=== PATIENT | female | born 2000 | race Asian ===

== ENCOUNTER 2023-03-14 15:17 | Outpatient (CLI) | payer OTHER, SELFPAY ==
--- NOTE | ~2023-03-14 | US_ITS ---
EXAMINATION: US OB <=14 wk fetus w TV DATE: 03/14/2023 16:20 INDICATION: Vaginal spotting. Complicated . TECHNIQUE: Real-time transabdominal and transvaginal obstetric ultrasound. FINDINGS: No prior studies for comparison. The uterus measures 9.2 x 6.2 x 7.8 cm. Uterus is retroverted. There is an intrauterine gestational s ac, with pole identified. The crown rump length measures 1.07 cm, which correlates with a mali mated gestational age of 7 weeks 1 day. heart tones are identified measuring 152 BPM. The ova samantha are unremarkable. Trace free fluid in the pelvis. IMPRESSION: 1. SL IUP with an EGA of 7 weeks, 1 days (EDC by current ultrasound of 10/30/2023). Reviewed, dictated and finalized at location B. IMPRESSION: 1. SL IUP with an EGA of 7 weeks, 1 days (EDC by current ultrasound of ).
== END 2023-03-14 15:18 | disposition home or self-care (01) ==
PROVIDERS: PCP Obstetrics & Gynecology; Visit Provider Registered Nurse
DX: O26.859 Spotting complicating pregnancy, unspecified trimester (principal); Z3A.00 Weeks of gestation of pregnancy not specified; Z3A.01 Less than 8 weeks gestation of pregnancy
CPT/HCPCS: 36415; 76801; 76817; 86850; 86900; 86901

== ENCOUNTER 2023-03-30 15:21 | Outpatient (CLI) | payer OTHER, SELFPAY ==
--- NOTE | ~2023-03-30 | US_ITS ---
EXAMINATION: US OB <=14 wk fetus w TV DATE: 03/30/2023 16:57 INDICATION: Possible small subchorionic hematoma. TECHNIQUE: Real-time transabdominal and transvaginal obstetric ultrasound. FINDINGS: Ultrasound dated 03/14/2023 The uterus measures 8.5 x 8.8 x 8.7 cm. There is an intrauterine gestational sac, with pole chandler ntified. The crown rump length measures 2.83 cm, which correlates appropriate interval growth. heart tones are identified measuring 162 BPM. There is a small subchorionic hemorrhage measuring 7 x 4 x 3 mm. IMPRESSION: 1. SL IUP with an EGA of 9 weeks, 3 days (EDC by initial ultrasound of 10/30/2023). 2: Small subchorionic hemorrhage. Reviewed, dictated and finalized at location A. IMPRESSION: 1. SL IUP with an EGA of 9 weeks, 3 days (EDC by initial ultrasound of ). 2: Small subchorionic hemorrhage.
== END 2023-03-30 15:22 | disposition home or self-care (01) ==
PROVIDERS: PCP Family Medicine; Visit Provider Obstetrics & Gynecology
DX: O28.3 Abnormal ultrasonic finding on antenatal screening of mother (principal); Z3A.09 9 weeks gestation of pregnancy
CPT/HCPCS: 76801; 76817

== ENCOUNTER 2023-05-31 11:52 | Outpatient (CLI) | payer OTHER, SELFPAY ==
[2023-05-31 12:49] LABS: Free T4 Free Thyroxine 0.96 ng/mL (0.78-2.19)
[2023-05-31 12:51] LABS: Thyroid Stimulating Hormone 0.987 uIU/mL (0.465-4.680)
== END 2023-05-31 11:53 | disposition home or self-care (01) ==
LOC: ANHLAB 11:53
PROVIDERS: PCP Family Medicine; Visit Provider Registered Nurse
DX: E03.9 Hypothyroidism, unspecified (principal); O99.280 Endocrine, nutritional and metabolic diseases complicating pregnancy, unspecified trimester; Z3A.00 Weeks of gestation of pregnancy not specified
CPT/HCPCS: 36415; 84439; 84443

== ENCOUNTER 2023-09-27 16:35 | Observation (INO) | payer OTHER, SELFPAY ==
[2023-09-27] VITALS (44 sets, daily range): BP systolic 86–112; BP diastolic 51–74; PULSE 95–136; O2SAT 97–100
--- NOTE | 2023-09-27 18:38 | OBADM ---
This patient, Batsheva Dowling, admitted to the OB room Labor/Delivery/Recovery 102 for observation. Patient/family oriented to hospital policies and general routines including ID bracelet, bed and alarms, visiting hours, pain management, procedures, bathroom and other care routines, personal items, smoking policy, room service/diet, and visiting hours. Patient/Family are encouraged to report perceived risks to care and to ask questions if they do not understand what they are told or what they should do.
[2023-09-27] MEDS: TERBUTALINE SULFATE 1 MG/ML VIAL 0.25 MG SUB-Q (18:46)
[2023-09-27] MEDS: LACTATED RINGERS 1,000 ML 125 ML IV CONT (23:26)
[2023-09-28] VITALS (31 sets, daily range): BP systolic 78–120; BP diastolic 25–74; PULSE 91–118; RESP 16; TEMP 36.6–37.1
[2023-09-28] MEDS: ZOLPIDEM TARTRATE (*CRX) 5 MG TABLET PO (01:21)
[2023-09-28 02:31] LABS: Appearance Urine Clear (Clear); Bacteria Urine None Seen /hpf; Bilirubin Urine Negative (Negative); Blood Urine Negative (Negative); Color Urine Yellow (Yellow); Glucose Urine UA Trace mg/dL (Negative); Ketones Urine Trace mg/dL (Negative); Leukocyte Esterase Ur Negative LEU/UL (Negative); Nitrate Urine Negative (Negative); Non Pathogenic Casts 0-2; Protein Urine Trace mg/dL (Negative); RBC Urine 0-2 /hpf (0-2); Specific Grav Ur 1.015 (1.001-1.035); Squamous Epithelial Cell Urine None Seen /hpf (Few); WBC Urine 0-5 /hpf (0-3)
[2023-09-28 02:33] LABS: Add Urine Microscopic? YES
--- NOTE | 2023-10-03 15:16 | P.PNOB_ITS ---
OB - Triage/Final Diagnosis Visit Information Comments/Additional reasons for admission: I have assessed the risk for this patient, Batsheva Dowling, and determined that she would benefit from observation care. Evaluation Laboratory results: Laboratory Tests 09/28/23 02:24 Urine Color Yellow Urine Appearance Clear Urine pH 6.0 Ur Specific [place] 1.015 Urine Protein Trace Urine Glucose (UA) Trace H Urine Ketones Trace H Ur Blood (Man) Negative Urine Nitrate Negative Urine Bilirubin Negative Urine Urobilinogen 1.0 Leukocyte Esterase Rfl Negative Urine RBC 0-2 Urine WBC 0-5 Ur Squamous Epith Cells None seen Urine Bacteria None seen Urine Casts 0-2 Final Diagnosis (1) Threatened labor: Code(s): O47.00 - False labor before 37 completed weeks of gestation, unspecified trimester Status: Acute
== END 2023-09-28 08:52 | disposition home or self-care (01) ==
PROVIDERS: Admitting Provider Obstetrics & Gynecology; PCP Nurse Practitioner Family; Visit Provider Obstetrics & Gynecology
DX: O47.00 False labor before 37 completed weeks of gestation, unspecified trimester (principal); Z3A.36 36 weeks gestation of pregnancy
CPT/HCPCS: 81001; 87081; 96372; A9270; G0378; G0379; J3105; J7120

== ENCOUNTER 2023-10-16 10:00 | Outpatient (RCR) | payer OTHER, SELFPAY ==
--- NOTE | ~2023-10-16 | US_ITS ---
EXAMINATION: US OB BPP wo non-stress DATE: 10/16/2023 12:29 CDT INDICATION: Decreased movement TECHNIQUE: Real-time transabdominal obstetric ultrasound. FINDINGS: No prior studies for comparison. There is a single living fetus in vertex presentation. The placenta is fundal without placenta previ a. cardiac activity and movement is noted with a heart rate of 154 beats per minute. Biophysical profile: breathin of 2 movement: 2 of 2 tone: 2 of 2 Amniotic flud pocket: 2 of 2 Total score: 8 of 8 IMPRESSION: 1. Single living intrauterine in vertex presentation. 2: Total biophysical profile score of 8/8. Reviewed, dictated and finalized at location B.
[2023-10-16 12:45] VITALS: BP 104/63; PULSE 87
== END 2023-12-03 08:12 | disposition home or self-care (01) ==
LOC: ANHOBOP 10:00
PROVIDERS: PCP Family Medicine; Visit Provider Obstetrics & Gynecology
DX: O36.8130 Decreased fetal movements, third trimester, not applicable or unspecified (principal); Z3A.38 38 weeks gestation of pregnancy
CPT/HCPCS: 59025; 76819

== ENCOUNTER 2023-10-23 07:25 | Inpatient (IN) | payer OTHER, SELFPAY ==
[2023-10-23] VITALS (127 sets, daily range): BP systolic 93–125; BP diastolic 55–96; PULSE 77–162; RESP 18; TEMP 36.6–37.7; O2SAT 74–100; BMI 20.2
--- NOTE | 2023-10-23 07:25 | LDADM ---
This patient, Batsheva Dowling, was admitted to Labor/Delivery/Recovery 109 on 10/23/23 at 07:25. Plans for labor, pain management and were discussed with patient. Patient/family oriented to hospital policies and general routines including ID bracelet, bed and alarms, visiting hours, pain management, procedures, bathroom and other care routines, personal items, smoking policy, room service/diet and guest tray routines, security routines, and visiting hours. Patient/Family are encouraged to report perceived risks to care and to ask questions if they do not understand what they are told or what they should do. See OBIX for further documentation.
[2023-10-23 07:59] LABS: Basophils Percent Auto 0.4 % (0.2-1.2); Eosinophils Absolute Auto 0.1 K/mm3 (0-0.3); Eosinophils Percent Auto 1.3 % (0-4.4); Hematocrit 35.8 % (37.0-47.0); Hemoglobin 11.5 g/dL (12.0-15.0); Immature Granulocyte Absolute 0.03 K/mm3 (0.00-0.031); Immature Granulocyte Percent A 0.6 % (0-0.5); Lymphocytes Absolute Auto 1.01 K/mm3 (0.9-3.2); Lymphocytes Percent Auto 18.7 % (18.3-44.2); Mean Corpuscular HGB Conc 32.1 g/dl (32-36); Mean Platelet Volume 10.9 fl (7.4-10.4); Monocytes Absolute Auto 0.3 K/mm3 (0.1-0.6); Monocytes Percent Auto 6.1 % (2.6-8.5); Neutrophils Absolute Auto 3.9 K/mm3 (1.3-6.7); Neutrophils Percent Auto 72.9 % (45.5-73.1); Platelet Count Result 140 k/mm3 (150-375); Red Blood Count 4.42 M/mm3 (4.2-5.4); Red Cell Distribution Width 14.1 % (11.5-14.5); White Blood Count 5.4 K/mm3 (4.5-10.0)
--- NOTE | 2023-10-23 08:10 | PM.IMHP ---
H&P: [facility] History of Present Illness Date/Time: 10/23/23 08:10 Chief Complaint: Medical induction of labor Narrative: Patient is a 23-year-old G1 at 39 weeks with an EDC of 10/30/23 admitted for medical induction of labor. course uncomplicated. She has been informed risks benefits of induction of labor versus spontaneous labor and has opted for induction of labor. Labs reviewed. GBS negative. Review of Systems Review of Systems: All systems reviewed & are unremarkable except as noted in HPI and below Constitutional: Constitutional: Reports no additional constitutional complaints and Denies headache(s) Eyes: Eyes: Denies spots in vision ENT: Reports system reviewed and no additional complaints, except as documented and Denies headache(s) Cardiovascular: Cardiovascular: Denies chest pain and Denies dyspnea Respiratory: Respiratory: Denies dyspnea Gastrointestinal: Gastrointestinal: Reports no additional gastrointestinal complaints Genitourinary: Genitourinary: Reports amenorrhea Musculoskeletal: Musculoskeletal: Reports no additional musculoskeletal complaints Integumentary/Breasts: Skin/Breast: Denies breast mass and Denies rash Neurologic: Denies headache(s) Psychiatric: Psychiatric: Reports no additional psychiatric complaints [facility] Past Medical History Medical History Amenorrhea, primary Encounter for annual routine gynecological examination Family History Family History Other Patient denies significant medical history Social History Social History Smoking status: Never smoker Second hand tobacco smoke exposure: No Alcohol intake: never Substance use: never Substance use type: does not use Do You Feel Safe in your Home?: Yes Lack of Transportation: No Lack of Food: Never True Current Housing: I Have Housing Concerned About Future Housing: No Difficulty Paying Gas/Electric Bills: No Difficulty Paying for Meds: No Currently Unemployed: No Education: Master's Degree or Higher Difficulty w/ Childcare or Family Care: No Living arrangements: other Additional living arrangements comments: Occupation/Education: unemployed Gender identity (if verbalized by the patient): Female Sexual Orientation (if Verbalized by the Patient): Straight or Heterosexual Spiritual care concerns: No Meds Home Medications and Allergies Home Medications Medication Instructions Recorded Confirmed Type No Home Medications 09/17/23 10/23/23 History Allergies Allergy/AdvReac Type Severity Reaction Status Date / Time No Known Allergies Allergy Verified 10/16/23 09:04 Exam Const: General: no acute distress Eyes: General: appearance normal, both eyes and all related structures Resp: Effort & Inspection: normal respiratory effort Cardio: Rate: regular rate GI: Other: Gravid no fundal tenderness no right upper quadrant pain Skin: General skin exam: no rashes or lesions noted Neuro: Cognition (Neuro): normal cognition Extrem: General: normal to inspection Psych: Mental Status: mental status grossly normal H&P: Results Labs Labs: Short CBC 10/23/23 Range/Units 07:51 WBC 5.4 (4.5-10.0) K/mm3 Hgb 11.5 L (12.0-15.0) g/dL Hct 35.8 L (37.0-47.0) % Plt Count 140 L (150-375) k/mm3 Assessment and Plan Assessment and plan (1) Elective induction of labor planned: Status: Acute Assessment and Plan: 1. Admit 2. Pitocin induction.
--- NOTE | 2023-10-23 08:10 | PM.OBPNVD ---
OB - PN: Subj Subjective Date/time seen: 10/23/23 08:10 Interval history: cat 1, AROM light mec. cerv 4-/-2. OB - PN: Obj Data Labs 10/23/23 07:51 Labs: Laboratory Results - last 24 hr 10/23/23 07:51 WBC 5.4 RBC 4.42 Hgb 11.5 L Hct 35.8 L MCV 81.0 MCH 26.0 MCHC 32.1 RDW 14.1 Plt Count 140 L MPV 10.9 H Immature Gran % (Auto) 0.6 H Neut % (Auto) 72.9 Lymph % (Auto) 18.7 [place] % (Auto) 6.1 Eos % (Auto) 1.3 Baso % (Auto) 0.4 Lymph # (Auto) 1.01 [place] # (Auto) 0.3 Eos # (Auto) 0.1 Baso # (Auto) 0.0 Abs Immat Gran (auto) 0.03 Absolute Neuts (auto) 3.9 Absolute Nucleated RBC 0.000 Nucleated RBC % 0.0 OB - PN A/P Time Spent With Patient Time: Total time spent is greater than 50% in coordination of care (as documented) at patient's floor/unit and/or counseling patient:
[2023-10-23] MEDS: OXYTOCIN 30 UNITS/NS 500 ML 30 UNITS/500 ML BAG IV CONT (08:15)
[2023-10-23] MEDS: LACTATED RINGERS 1,000 ML 125 ML IV CONT ×2 (08:15→09:18)
--- NOTE | 2023-10-23 12:37 | P.PNOB_ITS ---
OB - PN: Subj Subjective Date/time seen: 10/23/23 12:37 Interval history: fht 155,cat 2, c/c/+1 OB - PN: Obj Data Labs 10/23/23 07:51 Labs: Laboratory Results - last 24 hr 10/23/23 10/23/23 07:51 08:24 WBC 5.4 RBC 4.42 Hgb 11.5 L Hct 35.8 L MCV 81.0 MCH 26.0 MCHC 32.1 RDW 14.1 Plt Count 140 L MPV 10.9 H Immature Gran % (Auto) 0.6 H Neut % (Auto) 72.9 Lymph % (Auto) 18.7 [place] % (Auto) 6.1 Eos % (Auto) 1.3 Baso % (Auto) 0.4 Lymph # (Auto) 1.01 [place] # (Auto) 0.3 Eos # (Auto) 0.1 Baso # (Auto) 0.0 Abs Immat Gran (auto) 0.03 Absolute Neuts (auto) 3.9 Absolute Nucleated RBC 0.000 Nucleated RBC % 0.0 Blood Type B Positive Antibody Screen Negative OB - PN A/P Time Spent With Patient Time: Total time spent is greater than 50% in coordination of care (as documented) at patient's floor/unit and/or counseling patient:
[2023-10-23] MEDS: OXYTOCIN 30 UNITS/NS 500 ML 30 UNITS/500 ML BAG 125 UNITS IV CONT (13:51)
--- NOTE | 2023-10-23 13:54 | PM.OBPRVD ---
OB - Vaginal Delivery Note Procedure Delivery date: 10/23/23 Induction method: Per Pitocin Protocol Delivery augmentation: Rupture of Membranes Delivery monitor: External FHT Route of delivery: Episiotomy description: None Laceration Description: Perineal - 2nd Degree Delivery repair: vicryl (3.0) Specimen: No Quantitative Blood Loss (ml): 350 Anesthesia type: Epidural Disposition: Floor Complications: No immediate complications Narrative: She was admitted for medical induction of labor elective. Pitocin was started. She had assisted rupture of membranes with light meconium fluid noted the morning of 10/23/2023. She had an epidural placed upon request. She progressed into active labor and progressed to complete. She delivered a male . There was a loose nuchal cord which was manually reduced. was taken to nursery. Cord blood and cord gases obtained. Pitocin was started. Placenta delivered there were trailing membranes. The lower uterine segment was swept and small amount of membranes was obtained. Uterine tone was good. She sustained a second-degree perineal laceration repaired with 3-0 Vicryl. Baby Date of : 10/23/23 Time of : 13:06 Weeks of gestation at delivery: 39 gender: Male Weight (pounds): 8 Weight (ounces): 1 presentation: vertex position: Left Occiput Anterior Placenta delivery description: Spontaneous Cord Vessel Description: 3 Vessels, Loose (Nuchal x1) and Clamped/Cut score one minute: 7 score five minutes: 9
[2023-10-23] MEDS: ACETAMINOPHEN 325 MG TABLET 650 MG PO ×2 (15:32→20:56)
--- NOTE | 2023-10-23 16:15 | OBPPTRN ---
Patient transferred to post room #286 via wheelchair. Support person present. Oriented to unit, room, information board, rooming in, admission packet and security measures. Patient verbalizes understanding.
[2023-10-23] MEDS: IBUPROFEN 600 MG TABLET PO (18:58)
[2023-10-24 00:40] VITALS: BP 105/65; PULSE 81; RESP 16; TEMP 37
[2023-10-24] MEDS: IBUPROFEN 600 MG TABLET PO ×2 (00:52→08:59)
[2023-10-24] MEDS: ACETAMINOPHEN 325 MG TABLET 650 MG PO ×3 (03:55→17:14)
[2023-10-24 04:17] LABS: Hematocrit 26.5 % (37.0-47.0); Hemoglobin 8.2 g/dL (12.0-15.0)
[2023-10-24 08:20] VITALS: BP 90/53; PULSE 79; RESP 18; TEMP 36.7; O2SAT 99
[2023-10-24] MEDS: MULTIVIT/MIN/PREN/FOL AC/IRON TABLET 1 TAB PO (08:59)
[2023-10-24] MEDS: POLYSACCHARIDE IRON COMPLEX 150 MG CAPSULE PO ×2 (08:59→17:14)
[2023-10-24] MEDS: DOCUSATE SODIUM 100 MG CAPSULE PO ×2 (08:59→17:13)
[2023-10-24 12:30] LABS: Rapid Plasma Reagin Non-Reactive (NonReactive)
--- NOTE | 2023-10-24 12:43 | PM.OBPNVD ---
OB - PN: Subj Subjective Date/time seen: 10/24/23 12:43 Interval history: She states cramping and perineal pain not controlled with Tylenol and states Ibuprofen has never worked. OB - PN: Obj Data Labs 10/24/23 03:58 Labs: Laboratory Results - last 24 hr 10/23/23 10/24/23 07:51 03:58 Hgb 8.2 L D Hct 26.5 L RPR Non-reactive OB - PN A/P Plan day: 1 Plan: routine care Comments: Will give stronger analgesic. Time Spent With Patient Time: Total time spent is greater than 50% in coordination of care (as documented) at patient's floor/unit and/or counseling patient: Exam Psych: Affect: normal affect Other: Abd: fundus firm below umbilicus, nontender Perineum: healing Ext: nontender
[2023-10-24] MEDS: HYDROcodone/acetaminophen (*CRX) 5-325 MG TABLET 1 TAB PO ×2 (14:31→19:59)
--- NOTE | 2023-10-24 16:42 | PC.NURSE ---
[id number] Purposefully rounded and introductions were made to assess for pumping questions, concerns or needs. Mother shared she is using her own personal pump, however; has not pumped today and only once since delivery. Encouraged parent to pump for comfort and nipple stretching/stimulation for adequate milk production every 3 hours (8 times in 24 hours) 1-2 times at night to protect her milk supply. Mother requested a pump fit assessment. Mothers nipples were measured, flange size was adjusted to 21mm and we reviewed there is to be no pain with pumping, on the nipples or the breast. Patient was assessed for correct placement, flange size, and how to prevent infection and when to call the MD. Instructions given on cleaning, care, usage, that there should be no pain, pumping schedule for milk production, collection, and storage of human milk. Parents are encouraged to record the pumping schedule on the feeding sheet.?Parents voiced understanding of the education shared along with mom/baby guide and the pump measurement, flange fit handout for additional resource information. After the pumping initiation phase was completed 3mls of colostrum was collected in a syringe. Discussed the options of protecting the milk supply and how can eat. Resources provided for inpatient and outpatient services with the feeding sheet, mom/baby guide and name written on the communication board.
[2023-10-24 20:00] VITALS: BP 98/70; PULSE 65; RESP 18; TEMP 36.6
--- NOTE | 2023-10-24 20:19 | WPDANLDPN2 ---
Anes-Prog Note L&D Date/Time: 10/24/23 20:19 Comfortable throughout: labor and delivery Neuraxial method: epidural Epidural/Spinal procedure site: clean & non-tender Neuro status: Neuro function grossly intact. Cardiovascular status: normal Respiratory status: normal Airway patency: baseline Mental status: baseline Post-Op hydration status: normal Vital Signs: Last Vital Signs Temp 36.6 C 10/24/23 20:00 Pulse 65 10/24/23 20:00 Resp 18 10/24/23 20:00 BP 98/70 L 10/24/23 20:00 Pulse Ox 99 10/24/23 08:20 O2 Del Method Room Air 10/24/23 20:00 Pain score (VAS): 1/10 I/O: Intake & Output 10/24/23 10/24/23 10/24/23 07:59 15:59 23:59 Intake Total 480 Balance 480 Post-procedural complaints: none Patient feedback: Patient satisfied with anesthetic care.
[2023-10-25] MEDS: MULTIVIT/MIN/PREN/FOL AC/IRON TABLET 1 TAB PO (07:08)
[2023-10-25] MEDS: SIMETHICONE 80 MG TAB.CHEW PO (07:08)
[2023-10-25] MEDS: POLYSACCHARIDE IRON COMPLEX 150 MG CAPSULE PO (07:08)
[2023-10-25] MEDS: ACETAMINOPHEN 325 MG TABLET 650 MG PO (07:09)
[2023-10-25] MEDS: DOCUSATE SODIUM 100 MG CAPSULE PO (07:09)
[2023-10-25] MEDS: IBUPROFEN 600 MG TABLET PO (07:09)
[2023-10-25 07:55] VITALS: BP 105/69; PULSE 82; RESP 16; TEMP 37.3; O2SAT 100
--- NOTE | 2023-10-25 08:36 | P.PNOB_ITS ---
OB - PN: Subj Subjective Date/time seen: 10/25/23 08:36 Interval history: She states cramping and perineal pain not controlled with Tylenol and states Ibuprofen has never worked. Patient comments: pain well controlled, tolerating diet and other (Decreasing lochia.) [place] baby status: doing well and nursing well OB - PN: Obj Data Labs 10/24/23 03:58 Labs: Laboratory Results - last 24 hr 10/23/23 07:51 RPR Non-reactive OB - PN A/P Plan day: 2 Plan: discharge home and other Comments: Patient doing well. Follow up 4-6 weeks. Discharge instructions provided. Time Spent With Patient Time: Total time spent is greater than 50% in coordination of care (as documented) at patient's floor/unit and/or counseling patient: Time with patient: less than 15 minutes Exam Psych: Affect: normal affect Other: Abd: fundus firm below umbilicus, nontender Perineum: healing Ext: nontender
[2023-10-26 09:23] VITALS: BP 109/59; PULSE 99; RESP 18; TEMP 36.9; O2SAT 100
--- NOTE | 2023-11-14 17:15 | PM.OBDSVD ---
DS: Admitting Diagnosis Discharge Date 10/25/23 Admitting Diagnosis Medical induction of labor DS: Discharge Diagnosis Discharge Diagnosis (1) Elective induction of labor planned: Status: Acute (2) Vaginal delivery: Code(s): O80 - Encounter for full-term uncomplicated delivery Status: Acute OB - DS: Summary Hospital Course Hospital Course: She was admitted for medical induction of labor. She had a vaginal delivery. She did well and baby did well . She did achieve improved pain control with hydrocodone. She had asymptomatic anemia. Oral iron therapy started. She was discharged to home on day 2. OB Procedures : Ultrasound OB Procedures Intrapartum: Spontaneous Vag Delivery OB Procedures: : None Peripartum Data Infant Delivery Method: Natural Vaginal Laceration Description: Perineal - 2nd Degree Episiotomy description: None Time Spent with Patient Time attestation: Total time spent providing and/or coordinating discharge services: Discharge Plan Discharge Attending physician on discharge: Jerardo Mckeon Consulting providers: Hortencia Jama Discharging Clinician: Jerardo Mckeon Anticipated Discharge Date/Time: 10/25/23 08:37 Patient Disposition: Home, Self-Care Activity: may shower, no straining and pelvic rest Diet: regular Discharge Instructions: May take over the counter Tylenol and Motrin for pain. Take ferrous sulfate 325mg twice a day which is over the counter. Take a daily vitamin. Education: Mom and Baby Guide Given to: Mother Follow-Up: Call your delivering provider's office for an appointment to be seen in: 4 Weeks Mom and baby should come to the [facility] for the follow-up appointment. Appointment Date/Time: October 26, 2023 at 8:00 am What to expect at your follow-up visit: Physical Assessment Call [phone] if you are unable to keep your appointment time. BREAST CARE: * Wear a snug supportive bra. * For engorgement discomfort: Breast Feeding: * Apply warm moist washcloths * Express milk as needed to relieve engorgement * Wear loose clothing Bottle Feeding: * May apply ice packs * For sore nipples: * Identify correct latch-on * Apply warm moist washcloths before and after nursing * Air dry nipples after nursing * May apply Lansinoh cream to nipples PERINEAL CARE: * Until bleeding stops, use your terrie bottle after urinating * Change your pad frequently throughout the day * You may take sitz baths several times a day (fill your bathtub with warm water and soak for 20 minutes.) Do NOT bathe in the water * No tub baths until seen by your physician - You may shower ACTIVITY: * Rest as much as possible. * Do not exercise or lift anything heavier than your baby (such as laundry or other children.) * Avoid stairs or driving as much as possible. * Do not put anything into the vagina. No douching, tampons, or sexual activity until seen by physician. NOTIFY PHYSICIAN IF YOU HAVE ANY QUESTIONS OR IF ANY OF THE FOLLOWING SYMPTOMS OCCUR: * If your episiotomy or incision becomes red, swollen, or more painful than what you have experienced in the hospital. * If your vaginal bleeding becomes foul smelling. * If your vaginal bleeding becomes more heavy than a period or if your bleeding changes from pink to bright red. However, you may pass an occasional walnut-sized clot once or twice for the first week . * If you experience a sharp, shooting pain in you calves. * If you discover a hard, reddened area on your breast or if you experience flu-like symptoms. DIET: * Eat regular, well-balanced meals. * Drink plenty of fluids daily. If , drink to thirst. Patient Instructions: Antibiotic Form Stand Alone Forms: General Discharge Information Follow-up/Referrals: State
== END 2023-10-25 12:33 | disposition home or self-care (01) | DRG 807 ==
LOC: ANHLDR 07:27 → ANHOB2 16:52
PROVIDERS: Admitting Provider Obstetrics & Gynecology; PCP Nurse Practitioner Family; Visit Provider Obstetrics & Gynecology
DX: O69.81X0 Labor and delivery complicated by cord around neck, without compression, not applicable or unspecified (principal); Z37.0 Single live birth; Z3A.39 39 weeks gestation of pregnancy; O70.1 Second degree perineal laceration during delivery; O77.0 Labor and delivery complicated by meconium in amniotic fluid
CPT/HCPCS: 36415; 85014; 85018; 85025; 86592; 86850; 86900; 86901; A9270; J2590; J2795; J7120

== ENCOUNTER 2023-12-24 12:30 | Outpatient (CLI) | payer OTHER, SELFPAY ==
--- NOTE | ~2023-12-24 | US_ITS ---
US breast BI complete INDICATION: Bilateral breast pain TECHNIQUE: Dedicated bilateral breast ultrasound COMPARISON: No prior studies for comparison. FINDINGS: The breasts are composed of normal heterogeneous echotexture without focal solid or cystic mass. IMPRESSION: 1: Normal bilateral breast ultrasound. BI-RADS CATEGORY 1 - NEGATIVE Reviewed, dictated and finalized at location B.
== END 2023-12-24 12:31 ==
PROVIDERS: PCP Nurse Practitioner Obstetrics & Gynecology; Visit Provider Nurse Practitioner Obstetrics & Gynecology
DX: O92.29 Other disorders of breast associated with pregnancy and the puerperium (principal); Z3A.00 Weeks of gestation of pregnancy not specified
CPT/HCPCS: 76641

== ENCOUNTER 2024-01-17 12:37 | Outpatient (RCR) | payer OTHER, SELFPAY ==
--- NOTE | 2024-01-17 13:46 | OPREHPOC ---
Outpatient Therapy Plan of Care This is a Multidisciplinary Plan of Care that may contain components documented by all disciplines (PT, OT, and ST.) PT Problem 1 PT Problem #1 Knowledge Deficit PT Goal 1 Goal 1. Patient will perform independent HEP Target Visit 3 PT Problem 2 PT Problem #2 Pain PT Goal 1 Goal 1. No pain with pelvic floor exam 2. No pain with BM Target Visit 6 PT Problem 3 PT Problem #3 Impaired Strength PT Goal 1 Goal 1. Pt will demonstrate normal pelvic floor muscle tone
--- NOTE | 2024-01-17 13:46 | PTOPEVAL1 ---
Assessment and note entered by Pattie Henao DPT Evaluation Information Assessment Status Evaluation ICD-10 Condition Codes (PT) R10.2 Subjective Information Pt reports she had a baby in October. Voids 4-5 times a day and sometimes 1 time at night. Can hold urge 5-10 minutes and thinks she cannot hold as much as prior to having her baby. Denies pain with urination. Denies urinary incontinence. BM once per day with some pain 7/10 and lowest 0/10. Has been diagnosed with hemorrhoids. Pt reports she has not been sexually active recently to know if she has pain. First baby and . Denies complications or tearing. No previous abdominal surgeries. No MD follow up scheduled. Goal: see if more PT is needed, check out my body after having a baby Reported Pain Level Pain Score 0: Self Report Assessment PT Clinical Summary The patient is presenting to skilled therapy at approximately 2.5 months with pelvic pain. She presents with increased pelvic floor muscle tone and pain with palpation which are contributing to her pain with BM. She will highly benefit from therapy to address these impairments in order to reduce pain and restore full function. Plan of Care Interventions Electrical Stimulation,Hot Pack/Cold Pack,Manual Therapy,Neuro Re-education,Patient/Caregiver Education,Therapeutic Activities,Therapeutic Exercise PT Services Indicated Yes Treatment Frequency and 2-4 visits per month for 6 visits total (based on Duration patient's and 's work schedule) These treatments will address the objective and functional deficits as defined above. The patient will be advanced safely and appropriately in order for the patient to progress towards his/her prior level of function. Additional exercises will be introduced and as well as a comprehensive home exercise program upon discharge, if needed, ?to ensure carryover of functional gains achieved in the clinic. This treatment plan has been reviewed and agreement upon by the patient.
--- NOTE | 2024-01-29 09:54 | PTOPDC ---
Assessment and note entered by Pattei Henao DPT Evaluation Information Assessment Status Discharge - Pt Not Present ICD-10 Condition Codes (PT) R10.2 Subjective Information - Assessment PT Clinical Summary Patient is self discharging at this time due to limited time to attend therapy. Plan of Care PT Services Indicated No
== END 2024-01-29 12:06 | disposition home or self-care (01) ==
LOC: ANHPT 12:37
PROVIDERS: PCP Nurse Practitioner Obstetrics & Gynecology; Visit Provider Nurse Practitioner Family
DX: R10.2 Pelvic and perineal pain (principal); O90.89 Other complications of the puerperium, not elsewhere classified
CPT/HCPCS: 97110; 97161